=== PATIENT | male | born 1965 | race Caucasian/White ===

== ENCOUNTER → 2016-05-30 | Outpatient (CLI) | payer BC ==
--- NOTE | 2016-05-30 16:29 | MR ---
EXAM DATE: 05/30/16 PATIENT'S AGE: 50 Patient: JOSE BAE Facility: [place], [place] Site . Site : [id number] Study: MRI Shoulder Left [id number] 12:23:27 PM Ordering Physician: Darby Larios Final Report: Indication : Left shoulder pain. Fall. Comparison: 07 May 2016. Technique: Axial T1 and PD fat-sat, coronal PD, T2 and PD fat sat and sagittal PD and T2 sequences. Findings: Rotator cuff: Full thickness tear of the infraspinatus and supraspinatus. There is a residual isolated remnant of tendon anteriorly at the supraspinatus from footplate to the top of the humeral head which is from the body of the supraspinatus by proximal extension of the full thickness tear. Infraspinatus is avulsed from the footplate and proximally retracted approximately 2 cm. This tear blends with the full-thickness defect through the posterior into the proximal supraspinatus. Subscapularis is intact. Teres minor is intact. Edema signal in the supraspinatus and infraspinatus without atrophy. Acromioclavicular joint and coracoacromial arch: Flat type 1 slightly laterally downsloping undersurface of the lateral acromion. Superior humeral subluxation narrows the acromial humeral distance to approximately 4 mm. Thickness of the coracoacromial ligament is normal. Moderately prominent hypertrophic arthrosis acromioclavicular joint. Small inferior osteophyte nearly contacts the labrum. No clavicular dislocation or fracture. Subcoracoid interval and the coracoid index are within normal limits. Biceps labral complex: Some patchy intermediate signal suggesting mucoid degeneration and low-grade partial tearing at the biceps origin and superior labrum. Posterior, inferior and anterior labrum appear intact. Biceps tendon is appropriately located. Glenohumeral joint: Superior subluxation. Small joint effusion. No loose body or synovitis. No capsulitis. Bones and soft tissues: Deltoid bulk and signal is normal. Infiltrating fluid throughout the subacromial/subdeltoid bursa into the subcoracoid recess. No acute fracture or bone lesion. Axilla is clear. Impression: 1. Acute full thickness tear of the supraspinatus and infraspinatus as described. Superior subluxation humeral head. 2. Moderate degenerative arthritis acromioclavicular joint. Dictated by Eder Fragoso MD @ May 30 2016 3:06PM (Electronic Signature) Report Signed by Proxy and Original Signed Document filed in the Medical Record. JUANY
== END ==
LOC: MW.MRI 11:17
PROVIDERS: ATTEND Orthopaedic Surgery
DX: M25.512 Pain in left shoulder (principal); M75.122 Complete rotator cuff tear or rupture of left shoulder, not specified as traumatic; M22.3X2 Other derangements of patella, left knee; M19.012 Primary osteoarthritis, left shoulder
CPT/HCPCS: 73221-26-LT; 73221-LT

== ENCOUNTER 2016-06-18 07:27 | Day surgery (SDC) | payer BC ==
[~2016-06-18 07:27] MED LIST: Lactated Ringers 1,000 ML IV SCH; ceFAZolin 1 GM in Premix Bag 1 BAG IV SCH
[2016-06-18] MEDS ORDERED: Ketorolac 10 MG Tab PO PRN (08:00)
--- NOTE | 2016-06-18 08:34 | PCM.PREANE ---
Preanesthetic Assessment - Anesthesia/Transfusion/Family Hx Anesthesia History: Prior Anesthesia Without Reaction Family History of Anesthesia Reaction: No Transfusion History: No Prior Transfusion(s) - Review of Systems General: No Symptoms Pulmonary: No Symptoms Cardiovascular: No Symptoms Gastrointestinal: No symptoms Neurological: No Symptoms - Physical Assessment NPO Status Date: 06/17/16 O2 Sat by Pulse Oximetry: 94 Respiratory Rate: 16 Vital Signs: Last Vital Signs Temp 36.5 C 06/18/16 07:45 Pulse 62 06/18/16 07:45 Resp 16 06/18/16 07:45 BP 135/85 06/18/16 07:45 Pulse Ox 94 L 06/18/16 07:45 Height: 1.83 m Weight: 74.389 kg ASA Class: 2 Mental Status: Alert & Oriented x3 Airway Class: Mallampati = 1 Dentition: Reports: Normal Dentition ROM/Head Extension: Full Lungs: Clear to auscultation Cardiovascular: Regular Rate - Allergies Allergies/Adverse Reactions: Allergies Allergy/AdvReac Type Severity Reaction Status Date / Time No Known Allergies Allergy Verified 05/07/16 06:20 - Acknowledgements Anesthesia Type Planned: General Anesthesia Pt an Appropriate Candidate for the Planned Anesthesia: Yes Alternatives and Risks of Anesthesia Discussed w Pt/Guardian: Yes Pt/Guardian Understands and Agrees with Anesthesia Plan: Yes Additional Comments: GET with ISB planned PreAnesthesia Questionnaire HEENT History: Reports: Impaired vision Other HEENT History: glasses Cardiovascular History: Reports: Heart murmur Other Cardiovascular History: murmur as a child Musculoskeletal History: Reports: Arthritis, Fracture Other Musculoskeletal History: fx jaclyn elbows, fx jaclyn ankles, fx fingers - Infectious Disease History Infectious Disease History: Reports: Chicken pox - Past Surgical History Head Surgeries/Procedures: Reports: None HEENT Surgical History: Reports: Oral surgery GI Surgical History: Reports: Appendectomy, Hernia, inguinal Other GI Surgeries/Procedures: hx left inguinal hernia repair - SUBSTANCE USE Smoking Status *Q: Former Smoker Tobacco Use Within Last Twelve Months: Cigarettes Recreational Drug Use History: Yes Recreational Drug Type: - HOME MEDS Home Medications: Home Meds Naproxen 1 tab PO BID PRN 06/13/16 [History] - CURRENT (IN HOUSE) MEDS Current Meds: Current Medications Hydrocodone Bitart/Acetaminophen ([place] 325-10 Mg) 1 - 2 tab PO Q4H PRN PRN Reason: Pain Lactated Ringer's (Ringers, Lactated) 1,000 mls @ 100 mls/hr IV ASDIRECTED [facility] Last Admin: 06/18/16 07:46 Dose: 100 mls/hr Cefazolin Sodium/Dextrose 1 gm (/ Premix) 50 mls @ 100 mls/hr IV ONCALL JOSE Ketorolac Tromethamine (Toradol) 10 mg PO Q6H PRN PRN Reason: Pain Stop: 06/23/16 08:01 Preanesthetic Assessment - ANESTHESIA/TRANSFUSION/FAMILY HX Family History of Anesthesia Reaction: No - PHYSICAL ASSESSMENT O2 Sat by Pulse Oximetry: 94 RR: 16 Vital Signs: Last Vital Signs Temp 36.5 C 06/18/16 07:45 Pulse 62 06/18/16 07:45 Resp 16 06/18/16 07:45 BP 135/85 06/18/16 07:45 Pulse Ox 94 L 06/18/16 07:45 Height: 1.83 m Weight: 74.389 kg - ALLERGIES Allergies/Adverse Reactions: Allergies Allergy/AdvReac Type Severity Reaction Status Date / Time No Known Allergies Allergy Verified 05/07/16 06:20
[2016-06-18] MEDS ORDERED: fentaNYL 100 MCG/2 ML SDV ONE (08:49)
[2016-06-18] MEDS ORDERED: Dexamethasone 4 MG/ML 5 ML MDV ONE ×2 (08:49→09:03)
[2016-06-18] MEDS ORDERED: Midazolam 1 MG/ML 2 ML SDV ONE ×2 (08:49→09:04)
[2016-06-18] MEDS ORDERED: Bupivacaine 0.5% 30 ML SDV ONE (08:51)
[2016-06-18] MEDS ORDERED: Propofol 200 MG/20 ML SDV ONE (09:03)
[2016-06-18] MEDS ORDERED: Lidocaine 2% 5 ML SDV ONE (09:03)
[2016-06-18] MEDS ORDERED: Rocuronium 10 MG/ML 10 ML Syringe ONE (09:03)
[2016-06-18] MEDS ORDERED: Ondansetron 4 MG/2 ML SDV ONE (09:03)
[2016-06-18] MEDS ORDERED: fentaNYL 250 MCG/5 ML SDV ONE (09:04)
--- NOTE | 2016-06-18 09:29 | PCM.SN ---
- Free Text/Narrative Note: ISB placed in pre op holding with full monitoring. Time out performed. NC oxygen in place. Sedated with 2 mg versed, and 50 mcg of Fentanyl. Skin wheel of 1% lidocaine. Block needle placed without pain. twitch easily elicited in anterior shoulder. extinguishes at 0.3 ma. 30 ml of 0.5 % bupivicain with 4 mg of dexamethasone injectd in 5 ml increments without difficulty. No complications.
--- NOTE | 2016-06-18 12:30 | PCM.OPNOTE ---
- General Post-Op/Procedure Note Date of Surgery/Procedure: 06/18/16 Operative Procedure(s): L shoulder scope with debridement of anterior/posterior labrum, SAD, RTCR Post-Op Diagnosis: Degenerative L ant/post labral tear, L shoulder impingement, L shoulder RTC tear Anesthesia Technique: General ET tube, Regional block Primary Surgeon: Harriet Pastor Computer Systems Architect: Clifton Owen Computer Systems Architect: Patricia Hargrove EBL in mLs: 10 Condition: Good Free Text/Narrative:: #[id number]
--- NOTE | 2016-06-18 13:07 | PCM.POSTAN ---
POST ANESTHESIA ASSESSMENT - MENTAL STATUS Mental Status: alert, oriented - RESPIRATORY Respiratory Status: respiratory rate WNL, airway patent, O2 saturation stable, supplemental oxygen (O2 via nasal canula) - CARDIOVASCULAR CV Status: pulse rate WNL, blood pressure stable - GASTROINTESTINAL GI Status: no symptoms - PAIN Pain Score: 1 - POST OP HYDRATION Hydration Status: adequate & stable
[2016-06-18] MEDS: Acetaminophen/HYDROcodone 325-10 MG Tab PO PRN ×2 (13:38→14:33)
--- NOTE | 2016-06-18 14:52 | PCM48HPAN ---
Post Anesthesia Note - EVALUATION WITHIN 48HRS OF ANESTHETIC Vital Signs in Normal Range: Yes Patient Participated in Evaluation: Yes Respiratory Function Stable: Yes Airway Patent: Yes Cardiovascular Function Stable: Yes Hydration Status Stable: Yes Pain Control Satisfactory: Yes Nausea and Vomiting Control Satisfactory: Yes Mental Status Recovered: Yes
[2016-06-18 15:31] VITALS: BP 142/74
--- NOTE | 2016-06-18 15:32 | OR ---
SURGEON: Harriet Pastor MD DATE OF PROCEDURE: 06/18/2016 PREOPERATIVE DIAGNOSES: 1. Left shoulder impingement syndrome. 2. Left shoulder rotator cuff tear. POSTOPERATIVE DIAGNOSES: 1. Left shoulder impingement syndrome. 2. Left shoulder rotator cuff tear. 3. Left shoulder degenerative anterior and posterior labral tear. PROCEDURES: Left shoulder arthroscopy with: 1. Subacromial decompression with release of coracoacromial ligament and acromioplasty. 2. Debridement of degenerative anterior and posterior labral tear. 3. Arthroscopic rotator cuff repair. WARDROBE STYLIST: 1. Patricia Hargrove MD, PGY-2. 2. Cristina Barrera PA-C. 3. Clifton Owen PA-C. ANESTHESIA: General with interscalene block. ESTIMATED BLOOD LOSS: 10 mL. TOURNIQUET TIME: Zero minutes. COMPLICATIONS: None. DVT PROPHYLAXIS: PAS boots to bilateral lower extremities. IMPLANTS USED: Three 4.5 mm Arthrex BioComposite corkscrew anchors and one 4.75 mm Arthrex SwiveLock anchor (BioComposite). BRIEF HISTORY: Vihn is a 50-year-old male, who injured his left shoulder after a fall on the ice in April. He complained of immediate pain and has had inability to move the shoulder significantly since that time. An MRI did confirm a complete tear of the supraspinatus and infraspinatus tendons. At that time, I recommended surgical intervention. The risks and goals of procedure were discussed with the patient and were documented preoperatively. He agreed to proceed. DESCRIPTION OF PROCEDURE: The patient was properly identified and brought to the operating room. He was transferred from the OR cart and placed on the operating table in supine position. General anesthesia was administered. An interscalene block had been administered preoperatively. After adequate anesthesia was obtained, he was placed into a beach-chair position. Care was taken to pad all bony prominences. The head was secured. The left upper extremity was then prepped in standard fashion using ChloraPrep solution. It was then sterilely draped. A time-out was performed to ensure correct site and procedure. Preoperative antibiotics were given. The surgical site had been marked preoperatively. Bony landmarks were identified with a marking pen. Approximately 30 mL of normal saline was introduced into the glenohumeral joint. A posterior portal arthrotomy was established. Blunt trocar and cannula were introduced into the glenohumeral joint. Camera, inflow, and outflow were assembled. The rotator interval showed significant synovitis. An anterior portal was established. The subscapularis was probed and found to be intact. No loose bodies were noted within the subscapularis recess. The anterior labrum was then inspected. Significant degenerative changes were noted. This was debrided. The posterior labrum showed similar findings, which was also debrided. The biceps tendon was then inspected. It was pulled into the joint. No significant synovitis or tearing was noted. Its attachment to the superior labrum appeared intact. The glenohumeral joint was inspected. The glenohumeral head showed minor degenerative changes consistent with diffuse grade 2 chondromalacia. The axillary pouch showed no loose bodies. The attachment of the rotator cuff was then inspected. The bare area was noted posteriorly. There was absence of cuff tissue from that location anteriorly. The instruments were then removed from the glenohumeral joint. I then entered the subacromial space. Mild bursitis was noted. This was resected with electrocautery and the shaver. He was found to have a downward sloping acromion and a 5.0 mm carri was used to perform an acromioplasty. This provided good decompression of the subacromial space. The coracoacromial ligament was also released. An extensive bursectomy was then performed on the tissue overlying the rotator cuff. I was able to visualize the humeral head. The attachment of the cuff tendon remained intact. This area was then debrided using electrocautery. I then used the carri to roughen the bony surface. The rotator cuff was then inspected. The cuff tissue appeared to be robust. A cuff grasper was used to pull the torn cuff back to its attachment just lateral to the articular surface. There did not seem to be significant tension on the cuff. He did have much better cuff tissue posteriorly than anteriorly. It was elected to proceed with the rotator cuff repair. Three 4.5 mm corkscrew anchors were placed just lateral to the articular surface. Overall, the bone quality appeared to be normal. The corkscrew anchors were then placed. I did pull on these and no evidence of pullout was noted. The sutures were then passed through the cuff tissue. I initially placed a suture through the posterior cuff and used this as a traction stitch to keep the cuff pulled anteriorly. The remainder of the sutures were then passed. The sutures were then tied in a [id number] fashion. There was good reapproximation of the cuff tissue to the bone. At the completion, it appeared to be a nearly water tight closure. I elected to proceed with an additional lateral row for further compression of the cuff tissue to the bone. One suture from each of the anchor was then incorporated into a SwiveLock anchor and this was placed laterally without difficulty. At the completion, the cuff was probed and found to be adequately restored to its footprint. Instruments were then removed from the shoulder joint. The portal sites were closed with 3-0 nylon. Xeroform gauze was placed over the wound and a bulky dressing was applied. He was awakened from his anesthetic and transferred back to the operating room cart. He was brought to recovery room in stable condition. All needle and sponge counts were correct. LUCHO / ERICA /[id number]
== END 2016-06-18 15:10 | disposition home or self-care (01) ==
LOC: MW.SDS 07:27
PROVIDERS: ATTEND Orthopaedic Surgery
PROC: 0LQ24ZZ Repair Left Shoulder Tendon, Percutaneous Endoscopic Approach (ICD-10-PCS; principal; 2016-06-18)
PROC: 0RNK4ZZ Release Left Shoulder Joint, Percutaneous Endoscopic Approach (ICD-10-PCS; 2016-06-18)
DX: M75.42 Impingement syndrome of left shoulder (principal); M65.9 Synovitis and tenosynovitis, unspecified; M75.52 Bursitis of left shoulder; M19.012 Primary osteoarthritis, left shoulder; M75.122 Complete rotator cuff tear or rupture of left shoulder, not specified as traumatic; F17.210 Nicotine dependence, cigarettes, uncomplicated; Z91.030 Bee allergy status; Z98.890 Other specified postprocedural states; Z90.49 Acquired absence of other specified parts of digestive tract
CPT/HCPCS: 29826; 29827; A9270; C1713; J1100; J2250; J2405; J3010; J7120; 01630; 88304; J2704

== ENCOUNTER 2017-12-27 11:49 | Day surgery (SDC) | payer BC ==
[~2017-12-27 11:49] MED LIST changes: +Lidocaine 2% 5 ML SDV ONE; +Propofol 200 MG/20 ML SDV ONE; -ceFAZolin 1 GM in Premix Bag 1 BAG IV SCH
--- NOTE | 2017-12-27 13:19 | PCM.PREANE ---
Preanesthetic Assessment - Procedure Proposed Procedure: Colonoscopy - Anesthesia/Transfusion/Family Hx Anesthesia History: Prior Anesthesia Without Reaction Family History of Anesthesia Reaction: No Transfusion History: No Prior Transfusion(s) - Review of Systems General: No Symptoms Pulmonary: Other (smoker) Cardiovascular: No Symptoms Gastrointestinal: No Symptoms Neurological: No Symptoms, Other (arthritic joints) Other: Reports: None - Physical Assessment O2 Sat by Pulse Oximetry: 97 Respiratory Rate: 16 Vital Signs: Last Vital Signs Temp 97.2 F 12/27/17 13:09 Pulse 57 L 12/27/17 13:09 Resp 16 12/27/17 13:09 BP 135/82 12/27/17 13:09 Pulse Ox 97 12/27/17 13:09 Height: 6 ft Weight: 167 lb ASA Class: 2 Mental Status: Alert & Oriented x3 Airway Class: Mallampati = 1 Dentition: Reports: Normal Dentition Thyro-Mental Finger Breadths: 3 Mouth Opening Finger Breadths: 3 ROM/Head Extension: Full Lungs: Clear to Auscultation, Normal Respiratory Effort Cardiovascular: Regular Rate, Regular Rhythm, No Murmurs - Allergies Allergies/Adverse Reactions: Allergies Allergy/AdvReac Type Severity Reaction Status Date / Time bee venom protein (honey bee) Allergy Anaphylactic Verified 12/25/17 17:08 Shock hydrocodone Allergy Hives Verified 12/25/17 17:07 - Blood Blood Available: No Product(s) Available: None - Anesthesia Plan Pre-Op Medication Ordered: None - Acknowledgements Anesthesia Type Planned: MAC Pt an Appropriate Candidate for the Planned Anesthesia: Yes Alternatives and Risks of Anesthesia Discussed w Pt/Guardian: Yes Pt/Guardian Understands and Agrees with Anesthesia Plan: Yes PreAnesthesia Questionnaire HEENT History: Reports: Other (See Below) Other HEENT History: wears glasses Cardiovascular History: Reports: Heart Murmur Other Cardiovascular History: states has "faint" heart murmur, hx of bilateral varicose veins in lower legs Other Respiratory History: 40+ year smoker Gastrointestinal History: Reports: None Genitourinary History: Reports: None Musculoskeletal History: Reports: Fracture, Neck Pain, Chronic Other Musculoskeletal History: hx of whiplash 2 months ago hx of fx bilateral elbows, ankle toes and all fingers - Infectious Disease History Infectious Disease History: Reports: Chicken Pox - Past Surgical History GI Surgical History: Reports: Hernia, Inguinal Musculoskeletal Surgical History: Reports: Arthroscopic Knee, Shoulder Surgery Other Musculoskeletal Surgeries/Procedures:: hx of left RTCR and bilateral knee arthroscopies - SUBSTANCE USE Smoking Status *Q: Current Every Day Smoker Tobacco Use Within Last Twelve Months: Cigarettes Days Per Week of Alcohol Use: 7 Number of Drinks Per Day: 5 Total Drinks Per Week: 35 Recreational Drug Use History: No - HOME MEDS Home Medications: Home Meds . [No Known Home Meds] 12/25/17 [History] - CURRENT (IN HOUSE) MEDS Current Meds: Current Medications Lactated Ringer's (Ringers, Lactated) 1,000 mls @ 125 mls/hr IV ASDIRECTED JOSE Last Admin: 12/27/17 12:40 Dose: 125 mls/hr Discontinued Medications Lidocaine (Xylocaine-Mpf 2%) Confirm Administered Dose 5 ml .ROUTE .STK-MED ONE Stop: 12/27/17 07:48 Propofol (Diprivan 20 Ml) Confirm Administered Dose 400 mg .ROUTE .STK-MED ONE Stop: 12/27/17 07:49
[2017-12-27] MEDS ORDERED: Propofol 200 MG/20 ML SDV ONE ×2 (14:31→14:41)
--- NOTE | 2017-12-27 14:54 | PCM.OPNOTE ---
- General Post-Op/Procedure Note Date of Surgery/Procedure: 12/27/17 Operative Procedure(s): Colonoscopy with cold rectal polypectomy Pre Op Diagnosis: Desire for colorectal cancer screening Post-Op Diagnosis: Rectal polyp Anesthesia Technique: MAC (ASA II) Primary Surgeon: Sourav Whiteside Condition: Good Free Text/Narrative:: DICTATION [id number] CPT CODE [id number]
[2017-12-27] MEDS ORDERED: Lactated Ringers 1,000 ML IV SCH (15:00)
--- NOTE | 2017-12-27 15:40 | PCM.POSTAN ---
POST ANESTHESIA ASSESSMENT - MENTAL STATUS Mental Status: Alert, Oriented - RESPIRATORY Respiratory Status: Respiratory Rate WNL, Airway Patent, O2 Saturation Stable - CARDIOVASCULAR CV Status: Pulse Rate WNL, Blood Pressure Stable - GASTROINTESTINAL GI Status: No Symptoms - POST OP HYDRATION Hydration Status: Adequate & Stable
[2017-12-27 16:02] VITALS: BP 96/52
--- NOTE | 2017-12-27 16:37 | OR ---
SURGEON: Sourav Whiteside M.D. DATE OF PROCEDURE: 12/27/2017 OPERATION PERFORMED: Colonoscopy with cold rectal polypectomy. ANESTHESIA: MAC. ASA CLASSIFICATION: II. PREOPERATIVE DIAGNOSIS: Desire for colorectal cancer screening. POSTOPERATIVE DIAGNOSIS: Rectal polyp. DESCRIPTION OF PROCEDURE: The patient was taken to the endoscopy room and positioned on the endoscopy table in the left lateral decubitus position. Time-out was called for appropriate identification of the patient and procedure. Monitored anesthesia care was provided. The colonoscope was inserted into the rectum and advanced with moderate difficulty to the cecum where the colonoscope was retroflexed to visualize the ascending colon from below. The colonoscope was then straightened and slowly withdrawn. The cecum, ascending colon, hepatic flexure, transverse colon, splenic flexure, descending colon, sigmoid colon were very well visualized. No tumors, polyps, diverticula, or angiodysplastic changes were noted anywhere in that segment of colon. Once the colonoscope was withdrawn to the rectum, it was retroflexed to visualize the anal orifice from above. No hemorrhoids were seen. One polyp was encountered in the rectum and this was removed with cold biopsy forceps. No significant bleeding was noted. After retroflexion of colonoscope and straightening, the colonoscope was removed without difficulty. The patient tolerated the procedure well and was taken to recovery room in stable condition. ADA MALDONADO /[id number]
== END 2017-12-27 16:00 | disposition home or self-care (01) ==
LOC: MW.SDS 11:49
PROVIDERS: ATTEND Surgery
DX: Z12.11 Encounter for screening for malignant neoplasm of colon (principal); D12.8 Benign neoplasm of rectum; F17.210 Nicotine dependence, cigarettes, uncomplicated; Z88.5 Allergy status to narcotic agent; Z88.6 Allergy status to analgesic agent; Z91.030 Bee allergy status
CPT/HCPCS: 45380; J2704; J7120; 88305

== ENCOUNTER 2023-05-01 03:43 | Emergency (ER) | payer BC, MEDICAID ==
[2023-05-01 05:06] LABS: HEMATOCRIT 45.6 % (42.0-52.0); HEMOGLOBIN 15.7 g/dL (14.0-18.0); MEAN CORPUSCULAR HGB CONC 34.4 g/dL (32.0-36.0); MEAN CORPUSCULAR VOLUME 90.1 fL (83.0-99.0); MEAN PLATELET VOLUME 11.7 fL (9.4-12.4); PLATELET COUNT,PLT 198 K/uL (150-400); RED BLOOD CELL COUNT 5.06 M/uL (4.52-5.90); WHITE BLOOD CELL COUNT,WBC 12.13 K/uL (3.9-11.3)
[2023-05-01 05:43] LABS: ACETAMINOPHEN <2.0 ug/mL; ALANINE AMINOTRANSFERASE,ALT 31 IU/L (14-63); ALBUMIN 3.8 g/dL (3.4-5.0); ALKALINE PHOSPHATASE 97 U/L (46-116); ASPARTATE AMNIOTRANSFERASE,AST 28 IU/L (15-37); BLOOD UREA NITROGEN,BUN 15 mg/dL (7.0-18.0); CARBON DIOXIDE,CO2 29.9 mmol/L (21.0-32.0); CHLORIDE,CL 97 mmol/L (98-107); CREATININE 0.9 mg/dL (0.8-1.3); EST CRCL DRUG DOSING (CG) 101.79 mL/min; GLUCOSE RANDOM 120 mg/dL (74-106); MAGNESIUM 1.9 mg/dL (1.8-2.4); POTASSIUM,K 4.1 mmol/L (3.5-5.1); PROTEIN TOTAL,TP 7.5 g/dL (6.4-8.2); SALICYLATE 1.1 mg/dL (0.0-20.0); SODIUM,NA 137 mmol/L (136-148); TSH ULTRASENSITIVE 2.42 uIU/mL (0.36-3.74)
[2023-05-01 05:49] LABS: ESTIMATED GFR 101 mL/min (>60); ETHANOL BLOOD MEDICAL < 3.0 mg/dL
[2023-05-01 06:18] LABS: EOSINOPHILS ABSOLUTE MAN 0.24 K/uL (0.00-0.45); EOSINOPHILS PERCENT MAN 2 % (0-6); LYMPHOCYTES PERCENT MAN 14 % (24-44); MONOCYTES ABSOLUTE MAN 1.21 K/uL (0.00-0.80); MONOCYTES PERCENT MAN 10 % (0-8); SEG NEUTROPHILS ABSOLUTE MAN 8.98 K/uL (1.80-7.70); SEG NEUTROPHILS PERCENT MAN 74 % (41-71)
[2023-05-01 06:58] LABS: APPEARANCE,URINE CLEAR; BILIRUBIN,URINE NEGATIVE (NEGATIVE); COLOR,URINE YELLOW; GLUCOSE,URINE NEGATIVE (NEGATIVE); KETONES,URINE 15 mg/dL (NEGATIVE); LEUKOCYTE ESTERASE,URINE NEGATIVE (NEGATIVE); NITRITE,URINE POSITIVE (NEGATIVE); OCCULT BLOOD,URINE NEGATIVE (NEGATIVE); PROTEIN,URINE NEGATIVE (NEGATIVE)
[2023-05-01 07:07] LABS: AMPHETAMINES SCREEN, URINE NEGATIVE (CUTOFF=500); BARBITURATE SCREEN,URINE NEGATIVE (CUTOFF=200); BENZODIAZEPINES SCREEN,URINE NEGATIVE (CUTOFF=150); BUPRENORPHINE SCREEN,URINE NEGATIVE (CUTOFF=10); METHADONE SCREEN, URINE NEGATIVE (CUTOFF=200); METHAMPHETAMINES SCREEN, URINE NEGATIVE (CUTOFF=500); OXYCODONE SCREEN,URINE NEGATIVE (CUT0FF=100); PCP SCREEN,URINE NEGATIVE (CUTOFF=25); THC SCREEN,URINE 20 NG/ML NEGATIVE (CUTOFF=50)
[2023-05-01 07:11] LABS: BACTERIA,URINE RARE (NEGATIVE); EPITHELIAL CELLS,URINE RARE (NONE-FEW); RBC,URINE 0-1 (0-2/HPF); WBC,URINE 0-2 (0-5/HPF)
[2023-05-01 09:02] LABS: BASOPHILS ABSOLUTE AUTO 0.03 K/uL (0.00-0.20); BASOPHILS PERCENT AUTO 0.3 % (0.0-1.0); EOSINOPHILS ABSOLUTE AUTO 0.11 K/uL (0.00-0.45); EOSINOPHILS PERCENT AUTO 1.2 % (0.0-6.0); HEMATOCRIT 45.4 % (42.0-52.0); HEMOGLOBIN 15.7 g/dL (14.0-18.0); IMMATURE GRAN ABSOLUTE AUTO 0.02 K/uL (0.00-0.05); IMMATURE GRAN PERCENT AUTO 0.2 % (0.0-0.4); LYMPHOCYTES ABSOLUTE AUTO 1.21 K/uL (1.00-4.80); LYMPHOCYTES PERCENT AUTO 13.4 % (24.0-44.0); MEAN CORPUSCULAR HEMOGLOBIN 30.9 pg (28.0-32.0); MEAN CORPUSCULAR HGB CONC 34.6 g/dL (32.0-36.0); MEAN CORPUSCULAR VOLUME 89.4 fL (83.0-99.0); MONOCYTES ABSOLUTE AUTO 1.19 K/uL (0.00-0.80); MONOCYTES PERCENT AUTO 13.2 % (0.0-8.0); NEUTROPHILS ABSOLUTE AUTO 6.46 K/uL (1.80-7.70); NEUTROPHILS PERCENT AUTO 71.7 % (41.0-71.0); PLATELET COUNT,PLT 193 K/uL (150-400); RED BLOOD CELL COUNT 5.08 M/uL (4.52-5.90); WHITE BLOOD CELL COUNT,WBC 9.02 K/uL (3.9-11.3)
[2023-05-01] MEDS: Sodium Chloride 0.9% 2.5 ML Syringe FLUSH PRN (09:18)
[2023-05-01] MEDS: Sodium Chloride 0.9% 10 ML Syringe FLUSH PRN (09:18)
[2023-05-01 09:22] LABS: INR 0.96 (0.86-1.11)
[2023-05-01 14:16] VITALS: BP 132/76; PULSE 65
== END 2023-05-01 14:19 | disposition home or self-care (01) ==
LOC: MW.ED 03:43
DX: R45.851 Suicidal ideations (principal); F17.200 Nicotine dependence, unspecified, uncomplicated; Z91.030 Bee allergy status; Z88.8 Allergy status to other drugs, medicaments and biological substances; Z79.899 Other long term (current) drug therapy
CPT/HCPCS: 36415; 80053; 80143; 80179; 80305; 80307; 81001; 83735; 84443; 85025; 85610; 86850; 86900; 86901; 93005; 99285; J3490; 93010

== ENCOUNTER 2023-09-16 14:22 | Emergency (ER) | payer MEDICAID ==
[2023-09-16 15:10] LABS: BASOPHILS ABSOLUTE AUTO 0.03 K/uL (0.00-0.20); BASOPHILS PERCENT AUTO 0.5 % (0.0-1.0); EOSINOPHILS ABSOLUTE AUTO 0.12 K/uL (0.00-0.45); EOSINOPHILS PERCENT AUTO 1.9 % (0.0-6.0); HEMATOCRIT 47.5 % (42.0-52.0); HEMOGLOBIN 16.2 g/dL (14.0-18.0); IMMATURE GRAN ABSOLUTE AUTO 0.02 K/uL (0.00-0.05); IMMATURE GRAN PERCENT AUTO 0.3 % (0.0-0.4); LYMPHOCYTES ABSOLUTE AUTO 1.52 K/uL (1.00-4.80); LYMPHOCYTES PERCENT AUTO 24.5 % (24.0-44.0); MEAN CORPUSCULAR HEMOGLOBIN 32.7 pg (28.0-32.0); MEAN CORPUSCULAR HGB CONC 34.1 g/dL (32.0-36.0); MEAN CORPUSCULAR VOLUME 95.8 fL (83.0-99.0); MEAN PLATELET VOLUME 12.7 fL (9.4-12.4); MONOCYTES ABSOLUTE AUTO 0.44 K/uL (0.00-0.80); MONOCYTES PERCENT AUTO 7.1 % (0.0-8.0); NEUTROPHILS ABSOLUTE AUTO 4.08 K/uL (1.80-7.70); NEUTROPHILS PERCENT AUTO 65.7 % (41.0-71.0); PLATELET COUNT,PLT 142 K/uL (150-400); RED BLOOD CELL COUNT 4.96 M/uL (4.52-5.90); WHITE BLOOD CELL COUNT,WBC 6.21 K/uL (3.9-11.3)
[2023-09-16 15:28] LABS: INR 1.02 (0.86-1.11); PTT,PARTIAL THROMBOPLSTIN TIME 28.2 SEC (23.9-30.7)
[2023-09-16 15:33] LABS: A/G RATIO 1.1 (0.9-1.6); BILIRUBIN TOTAL 1.5 mg/dL (0.2-1.0); CALCIUM 9.3 mg/dL (8.5-10.1); CARBON DIOXIDE,CO2 31.1 mmol/L (21.0-32.0); CREATININE 0.8 mg/dL (0.8-1.3); EST CRCL DRUG DOSING (CG) 107.73 mL/min; MAGNESIUM 1.7 mg/dL (1.8-2.4); POTASSIUM,K 3.5 mmol/L (3.5-5.1); PROTEIN TOTAL,TP 7.7 g/dL (6.4-8.2)
[2023-09-16] MEDS: Iopamidol 755 MG/ML 500 ML Multipack Bottle IVPUSH STA (16:07)
[2023-09-16 17:23] VITALS: PULSE 72
[2023-09-16 18:13] VITALS: BP 120/76
== END 2023-09-16 18:12 | disposition home or self-care (01) ==
LOC: MW.ED 14:22
DX: R07.9 Chest pain, unspecified (principal); Z91.030 Bee allergy status; Z88.8 Allergy status to other drugs, medicaments and biological substances; Z79.899 Other long term (current) drug therapy; Z75.8 Other problems related to medical facilities and other health care
CPT/HCPCS: 36415; 71046; 71275; 80053; 83690; 83735; 84484; 85025; 85610; 85730; 93005; 99285; Q9967; 93010; 99284

== ENCOUNTER 2023-12-09 11:05 | Emergency (ER) | payer MEDICAID ==
[2023-12-09] MEDS: Famotidine 20 MG/2 ML SDV IVPUSH ONE (11:34)
[2023-12-09] MEDS: methylPREDNISolone Sodium Succinate 125 MG/2 ML SDV IVPUSH ONE (11:34)
[2023-12-09] MEDS: diphenhydrAMINE 50 MG/ML SDV IVPUSH ONE (11:34)
[2023-12-09] MEDS: Sodium Chloride 0.9% 1,000 ML IV ONE (11:34)
[2023-12-09 12:38] VITALS: BP 134/79; PULSE 62
== END 2023-12-09 12:53 | disposition home or self-care (01) ==
LOC: MW.ED 11:05
DX: T63.441A Toxic effect of venom of bees, accidental (unintentional), initial encounter (principal); F17.210 Nicotine dependence, cigarettes, uncomplicated; Z86.16 Personal history of COVID-19; Z79.899 Other long term (current) drug therapy; Z88.5 Allergy status to narcotic agent; Z91.030 Bee allergy status; Z75.8 Other problems related to medical facilities and other health care
CPT/HCPCS: 96361; 96374; 96375; 99282; J1200; J2919; J3490; J7030; 99283

== ENCOUNTER 2024-03-06 10:41 | Emergency (ER) | payer MEDICAID ==
[2024-03-06 11:16] LABS: BILIRUBIN,URINE NEGATIVE (NEGATIVE); COLOR,URINE YELLOW; GLUCOSE,URINE NEGATIVE (NEGATIVE); KETONES,URINE TRACE mg/dL (NEGATIVE); LEUKOCYTE ESTERASE,URINE NEGATIVE (NEGATIVE); NITRITE,URINE NEGATIVE (NEGATIVE); OCCULT BLOOD,URINE TRACE-INTACT (NEGATIVE); PROTEIN,URINE 100 mg/dL (NEGATIVE)
[2024-03-06 11:19] LABS: APPEARANCE,URINE HAZY
[2024-03-06 11:28] LABS: BASOPHILS ABSOLUTE AUTO 0.05 K/uL (0.00-0.20); BASOPHILS PERCENT AUTO 0.9 % (0.0-1.0); EOSINOPHILS ABSOLUTE AUTO 0.04 K/uL (0.00-0.45); EOSINOPHILS PERCENT AUTO 0.7 % (0.0-6.0); HEMATOCRIT 48.7 % (42.0-52.0); HEMOGLOBIN 17.1 g/dL (14.0-18.0); IMMATURE GRAN ABSOLUTE AUTO 0.03 K/uL (0.00-0.05); IMMATURE GRAN PERCENT AUTO 0.5 % (0.0-0.4); LYMPHOCYTES ABSOLUTE AUTO 1.05 K/uL (1.00-4.80); LYMPHOCYTES PERCENT AUTO 18.2 % (24.0-44.0); MEAN CORPUSCULAR HEMOGLOBIN 31.4 pg (28.0-32.0); MEAN CORPUSCULAR HGB CONC 35.1 g/dL (32.0-36.0); MEAN CORPUSCULAR VOLUME 89.4 fL (83.0-99.0); MEAN PLATELET VOLUME 11.1 fL (9.4-12.4); MONOCYTES ABSOLUTE AUTO 0.68 K/uL (0.00-0.80); MONOCYTES PERCENT AUTO 11.8 % (0.0-8.0); NEUTROPHILS ABSOLUTE AUTO 3.91 K/uL (1.80-7.70); NEUTROPHILS PERCENT AUTO 67.9 % (41.0-71.0); PLATELET COUNT,PLT 175 K/uL (150-400); RED BLOOD CELL COUNT 5.45 M/uL (4.52-5.90); WHITE BLOOD CELL COUNT,WBC 5.76 K/uL (3.9-11.3)
[2024-03-06 11:30] LABS: RBC,URINE 0-1 (0-2/HPF)
[2024-03-06 11:31] LABS: BACTERIA,URINE 1+ (NEGATIVE); EPITHELIAL CELLS,URINE RARE (NONE-FEW); HYALINE CASTS,URINE 0-2 (0-2/LPF); WBC,URINE 0-5 (0-5/HPF)
[2024-03-06 11:32] LABS: AMPHETAMINES SCREEN, URINE NEGATIVE (CUTOFF=500); BARBITURATE SCREEN,URINE NEGATIVE (CUTOFF=200); BENZODIAZEPINES SCREEN,URINE NEGATIVE (CUTOFF=150); BUPRENORPHINE SCREEN,URINE NEGATIVE (CUTOFF=10); METHADONE SCREEN, URINE NEGATIVE (CUTOFF=200); METHAMPHETAMINES SCREEN, URINE NEGATIVE (CUTOFF=500); OXYCODONE SCREEN,URINE NEGATIVE (CUT0FF=100); PCP SCREEN,URINE NEGATIVE (CUTOFF=25); THC SCREEN,URINE 20 NG/ML NEGATIVE (CUTOFF=50)
[2024-03-06 12:07] LABS: ACETAMINOPHEN <2.0 ug/mL; ALANINE AMINOTRANSFERASE,ALT 149 IU/L (14-63); ALBUMIN 3.7 g/dL (3.4-5.0); ALKALINE PHOSPHATASE 98 U/L (46-116); ASPARTATE AMNIOTRANSFERASE,AST 175 IU/L (15-37); BILIRUBIN TOTAL 0.5 mg/dL (0.2-1.0); BLOOD UREA NITROGEN,BUN 14 mg/dL (7.0-18.0); CALCIUM 8.6 mg/dL (8.5-10.1); CARBON DIOXIDE,CO2 30.4 mmol/L (21.0-32.0); CHLORIDE,CL 97 mmol/L (98-107); CREATININE 1.1 mg/dL (0.8-1.3); ESTIMATED GFR 79 mL/min (>60); ETHANOL BLOOD MEDICAL 328 mg/dL; GLUCOSE RANDOM 178 mg/dL (74-106); MAGNESIUM 1.8 mg/dL (1.8-2.4); POTASSIUM,K 3.7 mmol/L (3.5-5.1); PROTEIN TOTAL,TP 7.5 g/dL (6.4-8.2); SALICYLATE 5.3 mg/dL (0.0-20.0); SODIUM,NA 143 mmol/L (136-148); TSH ULTRASENSITIVE 1.57 uIU/mL (0.36-3.74)
[2024-03-06 15:12] VITALS: BP 120/80; PULSE 82
== END 2024-03-06 15:12 | disposition home or self-care (01) ==
LOC: MW.ED 10:41
DX: F10.129 Alcohol abuse with intoxication, unspecified (principal); R31.9 Hematuria, unspecified; R74.01 Elevation of levels of liver transaminase levels; F17.210 Nicotine dependence, cigarettes, uncomplicated; Z88.5 Allergy status to narcotic agent; Z91.030 Bee allergy status; Z79.899 Other long term (current) drug therapy; Z75.8 Other problems related to medical facilities and other health care
CPT/HCPCS: 36415; 80053; 80143; 80179; 80305-QW; 80307; 81001; 83735; 84443; 85025; 87086; 99284